=== PATIENT | male | born 1955 | race Caucasian/White ===

== ENCOUNTER 2017-02-12 20:41 | Emergency (ER) | payer BC ==
[2017-02-12] MEDS ORDERED: POTASSIUM99 M4 PO (21:10)
[2017-02-12] MEDS ORDERED: SYNTHROID25 MC1 PO (21:10)
[2017-02-12] MEDS ORDERED: HYDROCHLOROTH12.5 M2 (21:10)
[2017-02-12] MEDS ORDERED: CRANBERRY (21:11)
[2017-02-12] MEDS ORDERED: FEOSOL325 M1 PO (21:12)
== END 2017-02-12 23:55 ==
LOC: EDMED 20:41
DX: E86.0 Dehydration (principal); R42 Dizziness and giddiness; I10 Essential (primary) hypertension; Z79.899 Other long term (current) drug therapy
CPT/HCPCS: J2405